=== PATIENT | female | born 1950 | race Caucasian/White ===

== ENCOUNTER 2017-01-18 18:01 | Emergency (ER) | payer MEDICARE, OTHER ==
[2014-02-15 08:33] VITALS: BMI 40.4
[~2017-01-18 18:01] MED LIST: ATACAND16 MG PO; BETAPACE 80 MG80 MG PO; BUPROPION XL300 MG PO; NORVASC2.5 MG PO; PROZAC40 MG PO; SYNTHROID100 MCG PO; ZYLOPRIM100 MG PO
[2017-01-18 21:41] LABS: BASOPHILS 0.2 % (0-2); EOSINOPHILS 4.5 % (0-7); HEMATOCRIT 35.3 % (36.0-48.0); HEMOGLOBIN 11.5 g/dL (12-16); IMMATURE GRANULOCYTES 0.2 % (0-5); MCH 32.5 pg (26.0-34.0); MCHC 32.6 g/dL (31.0-37.0); MCV 99.7 fL (80.0-100.0); MEAN PLATELET VOLUME 11.1 fL (7.4-10.4); NEUTROPHILS 62.1 % (40-80); PLATELET COUNT 210 10x3/uL (130-400); RBC 3.54 10x6/uL (4.00-5.40); RDW 13.1 % (11.5-14.5); WBC 10.6 10x3/uL (4.8-10.8)
[2017-01-18 21:49] LABS: INR 0.97 (0.85-1.17); PROTIME 12.7 SECONDS (11.6-15.0)
[2017-01-18 21:59] LABS: ALBUMIN 3.5 g/dL (3.4-5.0); ANION GAP 12.6 mmol/L (8-16); BILIRUBIN - TOTAL 0.24 mg/dL (0.2-1.3); CALCIUM 9.5 mg/dL (8.5-10.1); CARBON DIOXIDE 29.1 mmol/L (21.0-32.0); CREATININE - SERUM 1.5 mg/dL (0.6-1.3); POTASSIUM - SERUM 3.7 mmol/L (3.5-5.1); PROTEIN - SERUM 7.6 g/dL (6.4-8.2)
== END 2017-01-19 00:20 | disposition home or self-care (01) ==
LOC: D.ER 18:01
PROVIDERS: Nurse Practitioner Family
DX: M25.562 Pain in left knee (principal); M71.22 Synovial cyst of popliteal space [Baker], left knee; F41.9 Anxiety disorder, unspecified; J45.909 Unspecified asthma, uncomplicated

== ENCOUNTER → 2017-03-02 16:50 | Outpatient (CLI) | payer MEDICARE, OTHER ==
[2014-02-15 08:33] VITALS: BMI 40.4
== END | disposition home or self-care (01) ==
LOC: D.MAMMO 15:00
DX: Z12.31 Encounter for screening mammogram for malignant neoplasm of breast (principal)

== ENCOUNTER 2018-03-23 06:08 | Day surgery (SDC) | payer MEDICARE, OTHER ==
[~2018-03-23] VITALS: Ht 182.9 cm; Wt 112.5 kg
--- NOTE | ~2018-03-23 | OP ---
PATIENT NAME: DILLAN DUGAN MEDICAL RECORD: [id number] :46 LOCATION:D.OPS ADMISSION DATE: SURGEON: RAMEZ DENNY MD DATE OF OPERATION: 03/23/2018 PREOPERATIVE DIAGNOSES: 1. Chest/breast sebaceous cyst. 2. Chest skin tag. 3. Right shoulder nevus. 4. Chest seborrheic keratosis. 5. Hypertension. 6. Gout. 7. Diabetes mellitus. POSTOPERATIVE DIAGNOSES: 1. Chest/breast sebaceous cyst. 2. Chest skin tag. 3. Right shoulder nevus. 4. Chest seborrheic keratosis. 5. Hypertension. 6. Gout. 7. Diabetes mellitus. PROCEDURES: 1. Excisional breast sebaceous cyst (2 cm). 2. Excision of right shoulder nevus (1 cm). 3. Excision of chest skin tag (less than 1 cm). 4. Excision a seborrheic keratoses (2 cm benign skin lesion). SURGEON: Ramez Denny MD BEVERAGE DISTILLER: Mago Ramirez APRN REPORT OF PROCEDURE: The patient's chest and right shoulder were prepped and draped in sterile fashion. The skin tag was in the mid portion of the chest, it was pedunculated and had a small attachment. This was just taken off using electrocautery. The patient's right shoulder was then approached. The patient had a nevus present. We made a circular incision around this nevus and excised it using electrocautery. We then approached the sebaceous cyst, which was on the mid chest, just to the right of midline, approaching the patient's right breast. A transverse ovoid incision was made overlying this mass. We dissected through the subcutaneous tissues around the mass, completely removing it with only a scant amount of spillage of sebum. We then irrigated out this wound with normal saline and any bleeding was treated with electrocautery. The last mass was a large seborrheic keratosis, which was on the left breast, just to the left of midline of the sternum. A circular incision was made around this mass. We then extended the incision obliquely in each direction to avoid dog earring to close the wound. All these masses were sent off separately. The wounds were all irrigated out and any bleeding was treated with electrocautery. The skin incisions overlying the sebaceous cyst and the seborrheic keratosis were reapproximated with running 5-0 Monocryl and dressed appropriately. COMPLICATIONS: None. CONDITION: Stable. OPERATIVE REPORT [id number] DILLAN DUGAN ANESTHESIA: General endotracheal and local. BLOOD LOSS: Minimal. TRANSINT:[id number] Voice Confirmation ID: [id number] DOCUMENT ID: [id number] RAMEZ DENNY MD at 1110 CC: CARMELITA MCDANIEL [id number] DICTATION DATE: 03/23/18 0957 TREE TOPPER: 03/23/18 1059 [facility] 03/23/[address] [facility] [address] [place] [address]
[2018-03-23 06:27] LABS: HEMATOCRIT 37.7 % (36.0-48.0); HEMOGLOBIN 12.5 g/dL (12-16); MCH 31.7 pg (26.0-34.0); MCHC 33.2 g/dL (31.0-37.0); MCV 95.7 fL (80.0-100.0); MEAN PLATELET VOLUME 10.2 fL (7.4-10.4); RBC 3.94 10x6/uL (4.00-5.40); RDW 12.3 % (11.5-14.5); WBC 11.5 10x3/uL (4.8-10.8)
[2018-03-23 07:02] LABS: CARBON DIOXIDE 24.9 mmol/L (21.0-32.0); CREATININE - SERUM 1.4 mg/dL (0.6-1.3); POTASSIUM - SERUM 3.9 mmol/L (3.5-5.1)
[2018-03-23] MEDS ORDERED: PROZAC40 MG PO (07:41)
[2018-03-23] MEDS ORDERED: PRAVACHOL20 MG PO (07:44)
[2018-03-23 08:26] VITALS: BP 120/65; Ht 182.9 cm; Wt 112.5 kg
[2018-03-23] MEDS ORDERED: HYDROCODONE-APA1 TAB PO (09:49)
== END 2018-03-23 11:53 | disposition home or self-care (01) ==
LOC: D.OPS 06:08 → D.PAN 08:45 → D.OPS 08:45
PROVIDERS: Anesthesiology
DX: L72.0 Epidermal cyst (principal); L82.1 Other seborrheic keratosis; I10 Essential (primary) hypertension; M10.9 Gout, unspecified; E11.9 Type 2 diabetes mellitus without complications; Z01.812 Encounter for preprocedural laboratory examination

== ENCOUNTER → 2018-07-29 14:43 | Outpatient (CLI) | payer MEDICARE, OTHER ==
[2018-03-23 08:26] VITALS: BMI 33.7
[~2018-07-29 14:43] MED LIST changes: +HYDROCODONE-APA1 TAB PO; +PRAVACHOL20 MG PO
== END | disposition home or self-care (01) ==
LOC: D.US 14:30
DX: R60.0 Localized edema (principal); M79.662 Pain in left lower leg

== ENCOUNTER → 2019-02-16 20:14 | Outpatient (CLI) | payer MEDICARE, OTHER ==
[2018-03-23 08:26] VITALS: BMI 33.7
== END | disposition home or self-care (01) ==
LOC: D.LABREF 20:14
PROVIDERS: ATTEND Surgery
DX: L02.211 Cutaneous abscess of abdominal wall (principal)

== ENCOUNTER → 2019-05-30 12:42 | Outpatient (CLI) | payer MEDICARE, OTHER ==
[2018-03-23 08:26] VITALS: BMI 33.7
== END | disposition home or self-care (01) ==
LOC: D.MRI 12:42
PROVIDERS: ATTEND Family Medicine
DX: M54.16 Radiculopathy, lumbar region (principal)